=== PATIENT | female | born 1980 | race Caucasian/White ===

== ENCOUNTER → 2017-07-12 | Outpatient (REF) ==
[2014-12-09 12:12] VITALS: BMI 25.7
[~2017-07-12] MED LIST: ALB18R INH; BIOT250012 PO; BUSP7.5T7 PO; CETI-169 PO; CHOL200074 PO; CRAN500C12 PO; DIC10 PO; DICY10CA11 PO; DOC100 PO; DOCU-202 PO; DOCU-416 PO; ERG400 PO; FEXO30TA36 PO; FLUT16SP19 NS; GUAI100G4 PO; GUALA600 PO; HYDR-385 PO; HYDR-389 PO; HYDR2TAB4 PO; IBU800 PO; INHALER; KET10 PO; LACT1CAP6 PO; LEVO50TA86 PO; LEVO75TA73 PO; LOR5/325 PO; MED150I; MOMR INH; MONT10TA PO; MULT1TAB64 PO; Mirena; NORG1TAB61 PO; OMEG-96 PO; ONDA4TAB PO; PER PO; PHEN120S16 PO; PRED-314 PO; PROM-110 PO; PROM12.556 PO; PSYL0.5234 PO; SERT-173 PO; SERT20OR6 PO; SODI1PAC44 NS; TRAZ-133 PO; TRAZ-156 PO; ZOL5 PO
[2017-07-12 10:12] LABS: LDL CHOLESTEROL 56 mg/dl
== END ==
DX: Z02.9 Encounter for administrative examinations, unspecified (principal)

== ENCOUNTER → 2017-07-16 | Outpatient (CLI) | payer OTHER ==
[2014-12-09 12:12] VITALS: BMI 25.7
--- NOTE | 2017-07-16 13:47 | RADIOLOGY IMAGING REPORT ---
FACILITY: [facility] - [place] PATIENT NAME: Ruma Long : 1980 MR: [id number] V: [id number] EXAM DATE: ORDERING PHYSICIAN: ISRAEL MURRIETA TECHNOLOGIST: Location: [facility] [place] Patient: Ruma Long : 1980 Visit/Account:[id number] Date of Sevice: 07/16/2017 Technique: WRIST LEFT MIN 3 VIEW HISTORY: Follow-up fracture Comparison studies: Left wrist radiographs May 28, 2016 FINDINGS: Volar plate and screw fixation traverses a comminuted, impacted fracture of the distal left radial metadiaphysis. The fracture lines are decreased in conspicuity consistent with healing. The anatomic alignment is maintained. There is slight decreased cortical mineralization of the left wri st consistent with disuse osteopenia. IMPRESSION: 1. ORIF of a comminuted, impacted distal left radial fracture with progressive healing. Report Dictated By: Jean-Claude Carrero DO at 07/16/2017 1:41 PM Report E-Signed By: Jean-Claude Carrero DO at 07/16/2017 1:43 PM WSN:[email or web address]
== END ==
LOC: RAD 12:14
PROVIDERS: ATTEND Orthopaedic Surgery
DX: S52.502D Unspecified fracture of the lower end of left radius, subsequent encounter for closed fracture with routine healing (principal)

== ENCOUNTER 2017-08-23 08:15 | Outpatient (RCR) | payer OTHER ==
[2014-12-09 12:12] VITALS: BMI 25.7
--- NOTE | 2017-06-07 18:14 | PT INITIAL EVALUATION ---
MEDICAL DIAGNOSIS: Left Wrist Distal Radius ORIF TREATMENT DIAGNOSIS: Left Wrist Distal Radius ORIF DATE OF ONSET: 06/03/17 SUBJECTIVE: Ruma is a 36 year-old female presenting to physial therapy s/p recent distal left radius fracture with ORIF on June 03, 2017 after a falling on stairs on May 28, 2017. Pt reports that prior to surgery she was placed in a splint immobilizing the wrist and elbow. Following surgery she is in a wrist brace only. Pt reports high pain immediately post surgery, but since only mild pain managed with medication. Pt reports elbow stiffness which has started to resolve following surgery. REHAB PROBLEM LIST: Increased Pain Decreased ROM Decreased Strength Decreased Function Decreased ADL's Decreased Mobility PREVIOUS MEDICAL HISTORY: See EMR OCCUPATION: Academic Guidance Specialist at [employer] OBJECTIVE: Pt L wrist is in a hard brace limiting wrist mobility with full finger mobility. Incision is healing nicely with external stitches present, dressing was changed, no signs of redness, warmth or discharge. ROM: Shoulder ROM: B full without pain. Elbow ROM: B full with hypermobility into extension, with stretch sensation in L elbow extension. Wrist ROM: R full without pain, L not tested secondary to recent surgery. Finger /Hand mobility: R hand hypermobile and full in all motions, L fingers full ROM with stiffness in all end ranges. Strength: R hand and wrist strength not tested at this time secondary to recent surgery. Sensation: Sensation intact B to light touch. Other Objective Findings: Pt has moderate swelling throughout the L wrist and hand. ASSESSMENT: Pt shows signs and symptoms consistent with recent L distal radial ORIF s/p fracture. Physical therapy is indicated to improve the above listed impairments and improve strength and functional mobility of the L UE for use with ADL's and recreational activities. Short Term Goals In 3 weeks pt will improve L wrist PROM to equal to that of the contralateral limb for improved mobility with ADL's and decreased pain. In 6 weeks pt will improve L wrist AROM to equal to that of the contralateral limb for improved mobility with ADL's and decreased pain. In 6 weeks pt will improve L wrist strength as tested by MMT to equal to that of the contralateral limb for improved mobility with ADL's. In 6 weeks pt will improve L pinch strength to 75% of the R UE for improved functional use with ADL's Patient's Goals Regain functional use. PLAN: Patient to be seen for Manual Therapy/STM/MET Strengthening/condition Ice/Heat Range of Motion Ultrasound Work Hardening/Cond Stretching Iontophoresis Neuromuscular Re-ed Closed Chain Program Electrical Stim Home Exercise Program [facility]Manual Traction Therapeutic Activities 3x/Week for 6 Weeks If you have any questions, comments, or concerns about this report or plan, please contact me at . Thank you, Sveta Akhtar, PT, DPT, CLT MTDD
--- NOTE | 2017-07-02 12:29 | PT PLAN OF CARE ---
Physician: Anthony Napier MD Patient is being seen: 3x/Week Therapist: Sveta Akhtar, PT, DPT, CLT Medical Diagnosis: Left Wrist Distal Radius ORIF Treatment Diagnosis: Left Wrist Distal Radius ORIF Date of Onset: 06/03/17 Date of Initial Evaluation: 06/07/17 Date patient was last seen: 07/02/17 Number of treatments: 9 Number of cancellations/No shows: 0 INTERVENTIONS: Manual Therapy/STM/MET Strengthening/condition Ice/Heat Range of Motion Ultrasound Work Hardening/Cond Stretching Iontophoresis Neuromuscular Re-ed Closed Chain Program Electrical Stim Home Exercise Program Mech./Manual Traction Therapeutic Activities GOALS: In 3 weeks pt will improve L wrist PROM to equal to that of the contralateral limb for improved mobility with ADL's and decreased pain. In 6 weeks pt will improve L wrist AROM to equal to that of the contralateral limb for improved mobility with ADL's and decreased pain. In 6 weeks pt will improve L wrist strength as tested by MMT to equal to that of the contralateral limb for improved mobility with ADL's. In 6 weeks pt will improve L pinch strength to 75% of the R UE for improved functional use with ADL's PATIENT'S GOAL: Regain functional use. Status of Patient's Goals: In Progress Patient Compliance: Good Prognosis: Good Reasons for continuing therapy: Ruma has fully regained hand ROM and mobility with good approximation and full extension of digits. However, pt shows slow progress into wrist ROM with small gains in all directions secondary to pain and tighness around incision and muscles. Incision mobility shows improvements with a stitch recently fully worked out on the distal aspect and improved mobility proximally. Pt is hesitant to hold stretches in end ranges of motion in the wrist making ROM progress slow. However, following mobilization and with overpressure pt is able to achieve greater ranges. Pt is progressing towards more AROM with radius healing. ROM: Shoulder ROM: B full without pain. Elbow ROM: B full with hypermobility into extension, with stretch sensation in L elbow extension. Wrist ROM: R: full without pain, L: flexion: AROM: 55 degrees, PROM: 65, ext: AROM 47, PROM 52, Ulnar deviation: 27, supination AAROM: 85, Pronation: >90 degrees Finger/Hand ROM: R hand hypermobile and full in all motions, L fingers full ROM. Strength: R hand and wrist strength not tested at this time secondary to recent surgery. Mobility: Pt is able to approximate proximal aspect of all digits with thumb. If you have any questions or concerns, please feel free to contact me at [phone]. Thank you, Sveta Akhtar, PT, DPT, CLT SYEDAD
--- NOTE | 2017-07-31 11:00 | PT PLAN OF CARE ---
Physician: Anthony Napier MD Patient is being seen: 2-3x/Week Therapist: Sveta Akhtar, PT, DPT, CLT Medical Diagnosis: Left Wrist Distal Radius ORIF Treatment Diagnosis: Left Wrist Distal Radius ORIF Date of Onset: 06/03/17 Date of Initial Evaluation: 06/07/17 Date patient was last seen: 07/31/17 Number of treatments: 21 Number of cancellations/No shows: 0 INTERVENTIONS: Manual Therapy/STM/MET Strengthening/condition Ice/Heat Range of Motion Ultrasound Work Hardening/Cond Stretching Iontophoresis Neuromuscular Re-ed Closed Chain Program Electrical Stim Home Exercise Program Mech./Manual Traction Therapeutic Activities GOALS: In 3 weeks pt will improve L wrist PROM to equal to that of the contralateral limb for improved mobility with ADL's and decreased pain. In 6 weeks pt will improve L wrist AROM to equal to that of the contralateral limb for improved mobility with ADL's and decreased pain. In 6 weeks pt will improve L wrist strength as tested by MMT to equal to that of the contralateral limb for improved mobility with ADL's. In 6 weeks pt will improve L serrano pinch strength to 75% of the R UE for improved functional use with ADL's PATIENT'S GOAL: Regain functional use. Status of Patient's Goals: In Progress Patient Compliance: Good Prognosis: Good Reasons for continuing therapy: Without restrictions of the splint wrist ROM has progressed significantly over the last weeks with both AROM as well as PROM. Quote Clerk strength has returned in most all digits with full hand cut out and marking machine operator still slightly lacking. Pt shows improved functional use of hand and wrist with occupational activities including typing. Further PT to focus on lingering ROM deficits as well as returning wrist strength and function to equal to the contralateral limb. ROM: Shoulder ROM: B full without pain. Elbow ROM: B full with hypermobility into extension, with stretch sensation in L elbow extension. Wrist ROM: R: full without pain, L: flexion: AROM: 70 degrees, PROM: 80, ext: AROM 75, PROM 80, Ulnar deviation: AROM: 30, PROM: 35, Radial Deviation: AROM: 20, PROM: 25, supination: AROM: 75, PROM: 85, Pronation: AROM: 75 degrees, PROM : 80 degrees. Finger/Hand ROM: R hand hypermobile and full in all motions, L fingers full ROM. Strength: Quote Clerk Strength: R 100#, L 42#. Serrano pinch: R: 17#, L 7#. Pinch cut out and marking machine operator: Index: B 8#, Middle: B 9#, Ring: R 6#, L 2#, Pinky: R 4#, L 1#. Mobility: Pt is able to approximate proximal aspect of all digits with thumb. If you have any questions or concerns, please feel free to contact me at [phone]. Thank you, Sveta Akhtar, PT, DPT, CLT SYEDAD
[~2017-08-23 08:15] MED LIST changes: -SERT20OR6 PO
--- NOTE | 2017-09-03 09:58 | PT PLAN OF CARE ---
Physician: Anthony Napier MD Patient is being seen: 2-3x/Week Therapist: Sveta Akhtar, PT, DPT, CLT Medical Diagnosis: Left Wrist Distal Radius ORIF Treatment Diagnosis: Left Wrist Distal Radius ORIF Date of Onset: 06/03/17 Date of Initial Evaluation: 06/07/17 Date patient was last seen: 08/23/17 Number of treatments: 31 Number of cancellations/No shows: 0 INTERVENTIONS: Manual Therapy/STM/MET Strengthening/condition Ice/Heat Range of Motion Ultrasound Work Hardening/Cond Stretching Iontophoresis Neuromuscular Re-ed Closed Chain Program Electrical Stim Home Exercise Program Mech./Manual Traction Therapeutic Activities GOALS: In 3 weeks pt will improve L wrist PROM to equal to that of the contralateral limb for improved mobility with ADL's and decreased pain. MET In 6 weeks pt will improve L wrist AROM to equal to that of the contralateral limb for improved mobility with ADL's and decreased pain. MET In 6 weeks pt will improve L wrist strength as tested by MMT to equal to that of the contralateral limb for improved mobility with ADL's. MET In 6 weeks pt will improve L serrano pinch strength to 75% of the R UE for improved functional use with ADL's. MET PATIENT'S GOAL: Regain functional use. Status of Patient's Goals: 4/4 Goals MET Patient Compliance: Good Prognosis: Good Reasons for discharge from therapy: Ruma is to discharge from physical therapy at this time secondary to completion of 4/4 functional goals. Pt shows equal ROM B in wrist, and fingers and shows good progress towards equal strength B. Pt is able to perform all her normal work and recreational activities and ADL's without any pain or limitations. Upon discharge pt is to continue with independent strengthening to regain full strength of the L wrist and hand. ROM: Shoulder ROM: B full without pain. Elbow ROM: B full with hypermobility into extension, with stretch sensation in L elbow extension. Wrist ROM: R: full without pain, L: flexion: AROM: 90 degrees,ext: AROM 85, Ulnar deviation: AROM: 30, Radial Deviation: AROM: 28, supination: AROM: 90, Pronation: AROM: 90 degrees. Finger/Hand ROM: R hand hypermobile and full in all motions, L fingers full ROM. Strength: Retaining Room Cutter Strength: R 94#, L 68#. Serrano pinch: R: 23#, L 16#. Pinch rock cutter: Index: B 14#, Middle: B 9#. Mobility: Pt is able to approximate proximal aspect of all digits with thumb. If you have any questions or concerns, please feel free to contact me at . Thank you, Sveta Akhtar, PT, DPT, CLT MTDD
== END 2017-08-23 18:00 | disposition home or self-care (01) ==
LOC: PT 08:15
PROVIDERS: ATTEND Orthopaedic Surgery
DX: Z47.89 Encounter for other orthopedic aftercare (principal); S52.502A Unspecified fracture of the lower end of left radius, initial encounter for closed fracture; W10.9XXA Fall (on) (from) unspecified stairs and steps, initial encounter
CPT/HCPCS: 97161

== ENCOUNTER → 2017-12-18 | Outpatient (CLI) | payer OTHER ==
[2014-12-09 12:12] VITALS: BMI 25.7
== END ==
LOC: LAB 13:03
PROVIDERS: ATTEND Family Medicine
DX: E03.9 Hypothyroidism, unspecified (principal)
CPT/HCPCS: 36415; 84443

== ENCOUNTER → 2018-04-23 | Outpatient (REF) ==
[2014-12-09 12:12] VITALS: BMI 25.7
[~2018-04-23] MED LIST changes: -TRAZ-156 PO; +TRAZ50TA34 PO
[2018-04-23 09:09] LABS: LDL CHOLESTEROL 54 mg/dl
== END ==
DX: Z02.9 Encounter for administrative examinations, unspecified (principal)

== ENCOUNTER → 2018-04-24 | Outpatient (CLI) | payer OTHER ==
[2014-12-09 12:12] VITALS: BMI 25.7
== END ==
LOC: LAB 13:30
PROVIDERS: ATTEND Family Medicine
DX: D58.2 Other hemoglobinopathies (principal)
CPT/HCPCS: 36415; 85027

== ENCOUNTER 2018-11-09 13:05 | Emergency (ER) | payer OTHER ==
[2014-12-09 12:12] VITALS: Wt 73.5 kg
[2018-11-09] MEDS ORDERED: SERT-184 PO (13:09)
[2018-11-09] MEDS ORDERED: LOSA25TA57 PO (13:09)
--- NOTE | 2018-11-09 13:13 | ER Report ---
History and Physical Time Seen By MD: 13:13 Hx. of Stated Complaint: ROLLER DERBY FALL ON CONCRETE - LEFT KNEE, RIGHT ELBOW WITH LACERATION AND RIGHT HIP PAIN. HPI/ROS CHIEF COMPLAINT: Right elbow, right hip, left knee pain HISTORY OF PRESENT ILLNESS: Patient is a 38-year-old female here with complaints of the above. Patient was reportedly at a roller derby match when she fell after hitting a lip striking her right elbow, hip, left knee. Patient is neurovascularly intact distal to the injury site. Denies hitting her head or having neck pain at this time. REVIEW OF SYSTEMS: Constitutional: No fever, no chills. Eyes: No discharge. ENT: No sore throat. Cardiovascular: No chest pain, no palpitations. Respiratory: No cough, no shortness of breath. Gastrointestinal: No abdominal pain, no vomiting. Genitourinary: No hematuria. Musculoskeletal: + right elbow, right hip, left knee pain Skin: Scattered abrasions at injury sites with mild ecchymosis Neurological: NV intact distal to injury sites Allergies: Coded Allergies: Sulfa (Sulfonamide Antibiotics) (Verified Allergy, Mild, ANAPHYLAXIS, 11/09/18) nickel (Verified Allergy, Mild, skin breakdown, 11/09/18) amoxicillin trihydrate (Verified Adverse Reaction, Intermediate, DIARRHEA, 11/09/18) codeine (Verified Adverse Reaction, Intermediate, N/V, 11/09/18) levofloxacin (Verified Adverse Reaction, Intermediate, JOINTS ACHE, 11/09/18) potassium clavulanate (Verified Adverse Reaction, Intermediate, DIARRHEA, 11/09/18) Home Meds Active Scripts Tramadol Hcl (TRAMADOL HCL) 50 Mg Tablet, 50 MG PO Q6H PRN for PAIN, #12 TAB 0 Refills Prov:GIANCARLO WALSH DO 11/09/18 Reported Medications Sertraline Hcl (SERTRALINE HCL) 50 Mg Tablet, 1 TAB PO QDAY, TAB 11/09/18 Losartan Potassium (LOSARTAN POTASSIUM) 25 Mg Tablet, 25 MG PO QDAY 11/09/18 Levothyroxine Sodium (LEVOTHYROXINE SODIUM) 75 Mcg Tablet, 88 MCG PO QDAY, TAB 01/15/17 Hx Smoking: No (1 PACK PER WEEK FOR 16 YEARS) Smoking Status: Current: Every Day Smoker Exposure to Second Hand Smoke?: Yes Hx Substance Use Disorder: No Hx Alcohol Use: Yes Constitutional Vital Sign - Last 24 Hours 11/09/18 13:10 Temp 98.0 Pulse 80 Resp 20 B/P (MAP) 148/94 Pulse Ox 96 O2 Delivery Room Air Physical Exam General Appearance: The patient is alert, has no immediate need for airway protection and no signs of toxicity. NAD Eyes: Pupils equal and round no pallor or injection. ENT, Mouth: Mucous membranes are moist. Respiratory: There are no retractions, lungs are clear to auscultation. Cardiovascular: Regular rate and rhythm. Gastrointestinal: Abdomen is soft and non tender, no masses, bowel sounds normal. Neurological: NV intact in distal extremities Skin: + scattered abrasions and ecchymosis at injury sites on right elbow, right hip, left knee with edema of left knee Musculoskeletal: Neck is supple non tender. + mild edema effusion of left knee with tenderness, right elbow/hip ecchymosis and abrasions DIFFERENTIAL DIAGNOSIS: After history and physical exam differential diagnosis was considered for fracture, contusion, abrasion, dislocation, effusion Medical Decision Making EKG/Imaging Imaging PATIENT NAME: Ruma Long : 1980 MR: [id number] V: [id number] EXAM DATE: [id number] ORDERING PHYSICIAN: GIANCARLO WALSH [place]CHNOLOG[place]: [place] [facility] [place]uma [place] : 1980 Visit/Account:[id number] Date of Sevice: 11/09/2018 Examination: KNEE 3 VIEW LEFT Comparison: None. History: Injury yesterday. Knee pain. Findings: No fracture. Alignment is within normal limits. Minimal degenerative change along the patellofemoral compartment. No joint effusion. Prepatellar soft tissue swelling. IMPRESSION: Left knee prepatellar soft tissue swelling. No fracture or malalignment. PATIENT NAME: Ruma Long : 1980 MR: [id number] V: [id number] EXAM DATE: [id number] ORDERING PHYSICIAN: GIANCARLO WALSH [place]CHNOLOG[place] [facility] [place]uma [place] : 1980 Visit/Account:[id number] Date of Sevice: 11/09/2018 Examination: ELBOW 2 VIEW RIGHT Comparison: None. History: Injury yesterday. Elbow pain. Findings: No fracture. Alignment and joint spaces are normal. No joint effusion. Mild dorsal soft tissue swelling. No radiopaque foreign body. IMPRESSION: Right elbow mild dorsal soft tissue swelling. No fracture or malalignment. PATIENT NAME: Ruma Long : 1980 MR: [id number] V: [id number] EXAM DATE: ORDERING PHYSICIAN: GIANCARLO WALSH [place]CHNOLOGIST: [place] [facility] [place] Ruma [place] : 1980 Visit/Account:[id number] Date of Sevice: 11/09/2018 Examination: 1 view pelvis and right hip Comparison: 01/15/2017. History: Fall yesterday. Hip pain. Findings: Pelvic ring is intact. Pubic symphysis and sacroiliac joint alignment is within normal limits. The arcuate lines of the sacrum are intact. Hip alignment is within normal limits and the hip joint spaces are normal. The proximal right femur is intact. Femoral head and neck contours within normal limits. Soft tissues are unremarkable. IMPRESSION: Negative pelvis and right hip. ED Course/Re-evaluation ED Course Patient is a 38-year-old female here with complaints of left knee pain with effusion, tenderness on palpation, right elbow abrasion with tenderness, right hip ecchymosis and tenderness on palpation after falling at a [employer] match. Tetanus was updated, patient was given Toradol with some improvement of pain control. X-ray imaging of the above injuries was completed and showed no acute fractures, malalignment or dislocations. Patient was given prescription for tramadol, return precautions provided, close PCP follow-up with possible consideration for orthopedic follow-up recommended. Decision to Disposition Date: November 09, 2018 Decision to Disposition Time: 15:13 Depart Departure Latest Vital Signs Vital Signs Date Time Temp Pulse Resp B/P (MAP) Pulse Ox O2 Delivery O2 Flow Rate FiO2 11/09/18 13:10 98.0 80 20 148/94 96 Room Air Impression: Primary Impression: Contusion Condition: Improved Disposition: HOME OR SELF-CARE Referrals: NADER FIGUEREDO DO (PCP) New Scripts Tramadol Hcl (TRAMADOL HCL) 50 Mg Tablet 50 MG PO Q6H PRN for PAIN, #12 TAB 0 Refills Prov: GIANCARLO WALSH DO 11/09/18 Patient Instructions: Contusion in Adults (ED) Additional Instructions: Please drink plenty of water. No acute fractures were identified on x-ray imaging. You may take ibuprofen, naproxen or acetaminophen as needed for primary pain control. You may take tramadol 1 tablet every 6-8 hours as needed for breakthrough pain control. Please follow-up with your primary care provider and orthopedics as needed. Please return promptly if you develop worsening pain, numbness, motor weakness. GIANCARLO WALSH DO November 09, 2018 13:13
[2018-11-09] MEDS ORDERED: DIPHTH/TETANUS/ACEL. PERTUSSIS IM ONLY ONE (13:40)
[2018-11-09] MEDS ORDERED: KETOROLAC 60 MG/2 ML VIAL IM ONE (13:40)
--- NOTE | 2018-11-09 14:38 | RADIOLOGY IMAGING REPORT ---
[facility] PATIENT NAME: Ruma Long : 1980 MR: [id number] V: [id number] EXAM DATE: ORDERING PHYSICIAN: GIANCARLO WALSH TECHNOLOGIST: Location: [facility] Patient: Ruma Long : 1980 Visit/Account:[id number] Date of Sevice: 11/09/2018 Examination: ELBOW 2 VIEW RIGHT Comparison: None. History: Injury yesterday. Elbow pain. Findings: No fracture. Alignment and joint spaces are normal. No joint effusion. Mild dorsal soft tissue swelling. No radiopaque foreign body. IMPRESSION: Right elbow mild dorsal soft tissue swelling. No fracture or malalignment. Report Dictated By: Angelito Snow MD at 11/09/2018 2:31 PM Report E-Signed By: Angelito Snow MD at 11/09/2018 2:33 PM WSN:[email or web address]
--- NOTE | 2018-11-09 14:39 | RADIOLOGY IMAGING REPORT ---
FACILITY: [facility] - [place] PATIENT NAME: Ruma Long : 1980 MR: [id number] V: [id number] EXAM DATE: ORDERING PHYSICIAN: GIANCARLO WALSH TECHNOLOGIST: Location: [facility] - [place] Patient: Ruma Long : 1980 Visit/Account:[id number] Date of Sevice: 11/09/2018 Examination: 1 view pelvis and right hip Comparison: 01/15/2017. History: Fall yesterday. Hip pain. Findings: Pelvic ring is intact. Pubic symphysis and sacroiliac joint alignment is within normal junior its. The arcuate lines of the sacrum are intact. Hip alignment is within normal limits and the hip joint spaces are normal. The proximal right femur is intact. Femoral head and neck contours within normal limits. Soft tissues are unremarkable. IMPRESSION: Negative pelvis and right hip. Report Dictated By: Angelito Snow MD at 11/09/2018 2:33 PM Report E-Signed By: Angelito Snow MD at 11/09/2018 2:35 PM WSN:[email or web address]
--- NOTE | 2018-11-09 14:42 | RADIOLOGY IMAGING REPORT ---
FACILITY: PATIENT NAME: Ruma Long : 1980 MR: [id number] V: [id number] EXAM DATE: ORDERING PHYSICIAN: GIANCARLO WALSH TECHNOLOGIST: Location: [facility] - [place] Patient: Ruma Long : 1980 Visit/Account:[id number] Date of Sevice: 11/09/2018 Examination: KNEE 3 VIEW LEFT Comparison: None. History: Injury yesterday. Knee pain. Findings: No fracture. Alignment is within normal limits. Minimal degenerative change along the pat ellofemoral compartment. No joint effusion. Prepatellar soft tissue swelling. IMPRESSION: Left knee prepatellar soft tissue swelling. No fracture or malalignment. Report Dictated By: Angelito Snow MD at 11/09/2018 2:36 PM Report E-Signed By: Angelito Snow MD at 11/09/2018 2:38 PM WSN:[email or web address]
[2018-11-09 15:00] VITALS: BP 107/74
[2018-11-09] MEDS ORDERED: TRAM-420 PO (15:15)
== END 2018-11-09 15:20 | disposition home or self-care (01) ==
LOC: ER 13:16
DX: S70.01XA Contusion of right hip, initial encounter (principal); W18.39XA Other fall on same level, initial encounter; Y93.51 Activity, roller skating (inline) and skateboarding
CPT/HCPCS: 73070; 73502; 73562; 90471; 90715; 96372; 99284; J1885

== ENCOUNTER 2018-12-31 17:18 | Emergency (ER) | payer OTHER ==
[2014-12-09 12:12] VITALS: Wt 73.5 kg
[~2018-12-31 17:18] MED LIST changes: +LOSA25TA57 PO; -PROM12.556 PO; +PROM12.557 PO; +SERT-184 PO; +TRAM-420 PO; -TRAZ50TA34 PO; +TRAZ50TA52 PO
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
[2018-12-31] MEDS ORDERED: ORPHENADRINE 60MG/2ML INJ IM ONE (17:35)
[2018-12-31 18:00] VITALS: BP 130/94
--- NOTE | 2018-12-31 18:10 | RADIOLOGY IMAGING REPORT ---
FACILITY: [facility] PATIENT NAME: Ruma Long : 1980 MR: [id number] V: [id number] EXAM DATE: ORDERING PHYSICIAN: MINE MAZARIEGOS TECHNOLOGIST: Location: [facility] [place] Patient: Ruma Long : 1980 Visit/Account:[id number] Date of Sevice: 12/31/2018 XR THORACIC SPINE 3 V INDICATION: Back pain. COMPARISON: None available. FINDINGS: AP, lateral, and swimmer's views of the thoracic spine. Normal alignment, vertebral body height, and intervertebral disc height. No significant degenerative changes. Included soft tissues are unremarkable. IMPRESSION: Negative thoracic spine radiographs. Report Dictated By: Mine Pang MD at 12/31/2018 6:03 PM Report E-Signed By: Mine Pang MD at 12/31/2018 6:04 PM WSN:[id number]
[2018-12-31] MEDS ORDERED: CYCL10TA29 PO (18:24)
== END 2018-12-31 18:26 | disposition home or self-care (01) ==
LOC: ER 17:39
DX: M54.14 Radiculopathy, thoracic region (principal); M62.830 Muscle spasm of back
CPT/HCPCS: 72072; 96372; 99283; J2360